=== PATIENT | male | born 1945 | race Hispanic/Latino ===

== ENCOUNTER 2017-12-25 16:43 | Emergency (ER) | payer MEDICARE ==
[~2017-12-25] VITALS: Ht 167.6 cm; Wt 79.4 kg
[2017-12-25] MEDS ORDERED: HYDROCODONE/APAP 10MG-325MG TAB PO ONE (17:00)
[2017-12-25] MEDS ORDERED: BUPIVACAINE HCL 0.5% INJ 30 ML VIAL INJ ONE (18:15)
--- NOTE | 2017-12-25 18:19 | Diagnostic Imaging Report ---
PROCEDURE:X-RAY RIGHT SHOULDER, COMPLETE COMPARISON:None. INDICATIONS:FALL FINDINGS: Anterior inferior dislocation of the humerus. There are no fractures, lytic lesions, or blastic lesions. A subacromial calcific density may reflect rotator cuff calcific tendinosis. Otherwise, the soft-tissues are unremarkable. CONCLUSION: Anteroinferior dislocation of the humerus. Dictated by: Lamont Garcia M.D. on 12/25/2017 at 18:28 Electronically approved by: Lamont Garcia M.D. on 12/25/2017 at 18:28
--- NOTE | 2017-12-25 18:21 | Diagnostic Imaging Report ---
PROCEDURE:X-RAY RIGHT HUMERUS, TWO OR MORE VIEWS COMPARISON:None. INDICATIONS:FALL FINDINGS: Anteroinferior dislocation of the humerus. There are no fractures, lytic lesions, or blastic lesions. The bones are well-mineralized. The soft-tissues are unremarkable. CONCLUSION: Anteroinferior dislocation of the humerus. Dictated by: Lamont Garcia M.D. on 12/25/2017 at 18:30 Electronically approved by: Lamont Garcia M.D. on 12/25/2017 at 18:30
[2017-12-25] MEDS ORDERED: BUPIVACAINE HCL 0.5% 10ML MPF VIAL INJ ONE (18:22)
--- NOTE | 2017-12-25 22:06 | Diagnostic Imaging Report ---
EXAM: SHOULDER RIGHT 1 VIEW, AP internal and external rotation DATE: 12/25/2017 9:13 PM Time stamp on Exam: [id number] hours INDICATION: Post reduction COMPARISON: None FINDINGS: BONES: No acute fractures. JOINTS: Degenerative changes of the acromioclavicular joint. SOFT TISSUES: Normal IMPRESSION: Single AP view of the right shoulder in internal rotation shows expected alignment of the glenohumeral joint. Signed by: Dr. Aliza Sinha M.D. on 12/25/2017 10:02 PM
[2017-12-25 22:17] VITALS: BP 125/87
== END 2017-12-25 22:35 | disposition home or self-care (01) ==
LOC: ER 16:43
DX: S43.014A Anterior dislocation of right humerus, initial encounter (principal); W18.30XA Fall on same level, unspecified, initial encounter; Y99.0 Civilian activity done for income or pay; I10 Essential (primary) hypertension; E11.9 Type 2 diabetes mellitus without complications
CPT/HCPCS: 99283